=== PATIENT | female | born 1975 | race Two or more races ===

== ENCOUNTER 2020-06-04 19:26 | Emergency (ER) | payer OTHER ==
[~2020-06-04] VITALS: Ht 165.1 cm; Wt 78.9 kg
[2020-06-04 22:18] LABS: Hematocrit 31.7 % (36.0-46.0); Hemoglobin 10.1 g/dL (12.2-16.2)
[2020-06-04 22:22] LABS: Mean Corpuscular Hemoglobin 23.2 pg (28.0-32.0); Mean Corpuscular Hgb Conc. 31.7 g/dL (32.0-36.0); Mean Corpuscular Volume 73.2 fL (80.0-100.0); Platelet Count (auto) 343 10^3/uL (140-450); Red Blood Cells 4.34 10^6/uL (4.0-5.20); Red Cell Distribution Width 18.4 % (11.8-14.3); White Blood Cell 6.6 10^3/uL (4.4-10.8)
[2020-06-04 22:26] LABS: Basophils % (manual) 0 (0.0-2.0); Blast Cells 0; Metamyelocytes % 0; Myelocytes % 0; Promyelocytes % 0; Reactive Lymphocytes 0
[2020-06-04 22:36] LABS: INR 0.92 (0.9-1.15); Partial Thromboplastin Time 26.5 sec (23.0-31.2)
[2020-06-04 22:38] LABS: Alanine Aminotransferase 45 U/L (13-56); Albumin 3.1 g/dL (3.4-5.0); Anion Gap 4 (5-15); Blood Urea Nitrogen 19 mg/dL (7-18); Calcium 7.7 mg/dL (8.5-10.1); Carbon Dioxide 24 mmol/L (21-32); Chloride 105 mmol/L (98-107); Glucose 90 mg/dL (74-106); Magnesium 2.1 mg/dL (1.6-2.6); Potassium 3.7 mmol/L (3.5-5.1); Sodium 133 mmol/L (136-145)
[2020-06-04 22:47] LABS: Alkaline Phosphatase 65 U/L (45-117); Aspartate Aminotransferase 33 U/L (15-37); BUN/Creatinine Ratio 26.8; Bilirubin, Total 0.2 mg/dL (0.2-1.0); GFR African American 114 mL/min; GFR Non-African American 94 mL/min; Total Protein 8.3 g/dL (6.4-8.2)
[2020-06-04 23:17] LABS: Band Neutrophils % (manual) 9; Eosinophils % (manual) 17 (0-7); Lymphocytes % (manual) 31 (10.0-50.0); Monocytes % (manual) 5 (0-12)
[2020-06-05] LABS: Urine Bacteria FEW /hpf (None Seen); Urine Blood Negative /uL (Negative); Urine Specific Gravity 1.011 (1.001-1.035); Urine WBC 1 /hpf (0 - 5)
[2020-06-05 01:09] VITALS: BP 150/86
== END 2020-06-05 01:19 | disposition home or self-care (01) ==
LOC: ER 19:26
DX: J20.8 Acute bronchitis due to other specified organisms (principal); I10 Essential (primary) hypertension; Z20.822 Contact with and (suspected) exposure to COVID-19
CPT/HCPCS: 36415; 71045; 80053; 81001; 82728; 83735; 84484; 85007; 85027; 85610; 85730; 87426

== ENCOUNTER 2020-10-21 00:04 | Inpatient (IN) | payer OTHER ==
[~2020-10-21] VITALS: Ht 162.6 cm; Wt 78.0 kg
[2020-10-21 01:00] LABS: Basophils # (auto) 0.1 10 ^3/uL (0-0.2); Eosinophils # (auto) 2.8 10 ^3/uL (0-0.8); Neutrophils # (auto) 3.3 10 ^3/uL (1.6-8.6)
[2020-10-21 01:02] LABS: Basophils % (auto) 0.7 % (0.0-2.0); Hematocrit 29.7 % (36.0-46.0); Hemoglobin 9.6 g/dL (12.2-16.2); Lymphocytes # (auto) 3.1 10 ^3/uL (0.4-5.4); Mean Corpuscular Hemoglobin 22.9 pg (28.0-32.0); Mean Corpuscular Hgb Conc. 32.5 g/dL (32.0-36.0); Mean Corpuscular Volume 70.4 fL (80.0-100.0); Monocytes # (auto) 0.6 10 ^3/uL (0-1.3); Monocytes % (auto) 6.4 % (0.0-12.0); Neutrophils % (auto) 33.4 % (37.0-80.0); Red Blood Cells 4.22 10^6/uL (4.0-5.20); Red Cell Distribution Width 16.3 % (11.8-14.3)
[2020-10-21 01:11] LABS: Eosinophils % (auto) 28.5 % (0.0-7.0)
[2020-10-21 01:16] LABS: Albumin 3.5 g/dL (3.4-5.0); BUN/Creatinine Ratio 19.7; Calcium 8.7 mg/dL (8.5-10.1); Potassium 4.2 mmol/L (3.5-5.1)
[2020-10-21 01:19] LABS: Bilirubin, Total 0.3 mg/dL (0.2-1.0); Total Protein 8.8 g/dL (6.4-8.2)
[2020-10-21] MEDS ORDERED: AMOXICILLIN/CLAVULAN 500 MG TAB PO ONE (02:45)
[2020-10-21] MEDS ORDERED: IPRATROPIUM BROM 0.5 MG/2.5ML INH SOL NEB ONE (02:45)
[2020-10-21] MEDS ORDERED: ALBUTEROL SULF 2.5 MG/0.5ML(0.5%) NEB SOLN NEB ONE (02:45)
[2020-10-21] MEDS ORDERED: AMOXICILLIN/CLAVUL 875 MG TAB PO ONE ×2 (03:00)
[2020-10-21] MEDS ORDERED: DexAMETHasone SOD PHOS 10MG/1ML VIAL INJ IV ONE (03:30)
[2020-10-21] MEDS ORDERED: PIPERACILLIN-TAZOB 3.375GM 100 ML IV ONE (03:30)
[2020-10-21 04:00] LABS: CRP High Sensitivity 0.77 mg/dL (< 0.3)
[2020-10-21] MEDS ORDERED: TEMAZEPAM 15 MG CAP PO PRN (07:30)
[2020-10-21] MEDS ORDERED: NITROGLYCERIN 0.4 MG SL TAB SL PRN (07:30)
[2020-10-21] MEDS ORDERED: MORPHINE SULFATE INJECTION 2 MG/ML SYRG IV PRN (07:30)
[2020-10-21] MEDS ORDERED: ONDANSETRON HCL 4 MG/2 ML VIAL IV PRN (07:30)
[2020-10-21] MEDS ORDERED: ACETAMINOPHEN 325 MG TAB PO PRN (07:30)
[2020-10-21 09:36] LABS: Basophils # (auto) 0 10 ^3/uL (0-0.2); Eosinophils # (auto) 0.1 10 ^3/uL (0-0.8); Hemoglobin 9.6 g/dL (12.2-16.2); Lymphocytes # (auto) 0.7 10 ^3/uL (0.4-5.4); Monocytes # (auto) 0.1 10 ^3/uL (0-1.3)
[2020-10-21 09:38] LABS: Basophils % (auto) 0.3 % (0.0-2.0); Eosinophils % (auto) 2.2 % (0.0-7.0); Hematocrit 29.9 % (36.0-46.0); Lymphocytes % (auto) 14.1 % (10.0-50.0); Mean Corpuscular Hemoglobin 22.6 pg (28.0-32.0); Mean Corpuscular Hgb Conc. 32.1 g/dL (32.0-36.0); Mean Corpuscular Volume 70.4 fL (80.0-100.0); Monocytes % (auto) 1.3 % (0.0-12.0); Neutrophils # (auto) 4.1 10 ^3/uL (1.6-8.6); Neutrophils % (auto) 82.1 % (37.0-80.0); Red Blood Cells 4.24 10^6/uL (4.0-5.20); Red Cell Distribution Width 16.8 % (11.8-14.3)
[2020-10-21] MEDS: AMOXICILLIN/CLAVUL 875 MG TAB PO SCH ×2 (09:49→21:42)
[2020-10-21] MEDS: ZINC SULFATE 220mg CAP or TAB PO SCH (09:50)
[2020-10-21] MEDS: ENOXAPARIN SOD 40 MG/0.4 ML SYRINGE SC SCH (09:50)
[2020-10-21] MEDS: FAMOTIDINE 20 MG TAB PO SCH ×2 (09:50→21:42)
[2020-10-21] MEDS: ASCORBIC ACID 500 MG TAB PO SCH ×2 (09:50→21:42)
[2020-10-21] MEDS: MULTIPLE VITAMIN TAB PO SCH (09:50)
[2020-10-21 09:59] LABS: % Iron Saturation 3.3 % (15-50)
[2020-10-21 10:00] LABS: Albumin 3.2 g/dL (3.4-5.0); Calcium 8.8 mg/dL (8.5-10.1); Potassium 3.8 mmol/L (3.5-5.1)
[2020-10-21 10:05] LABS: BUN/Creatinine Ratio 14.9; Bilirubin, Total 0.3 mg/dL (0.2-1.0); Total Protein 8.5 g/dL (6.4-8.2)
[2020-10-21 10:40] LABS: Ferritin 3.6 ng/mL (10-322)
[2020-10-21 12:02] VITALS: BP 144/63
[2020-10-21] MEDS: SODIUM CHLOR 0.9% PF (SALINE LOCK) 10ML VIAL/SYR IV SCH ×2 (13:29→21:42)
[2020-10-21 16:55] LABS: Urine Bacteria NONE SEEN /hpf (None Seen); Urine Blood Negative /uL (Negative); Urine Specific Gravity 1.016 (1.001-1.035); Urine WBC <1 /hpf (0 - 5)
[2020-10-21 17:00] VITALS: BP 134/77
[2020-10-21 21:46] VITALS: BP 153/79
[2020-10-22 05:26] VITALS: BP 144/92
[2020-10-22] MEDS: SODIUM CHLOR 0.9% PF (SALINE LOCK) 10ML VIAL/SYR IV SCH ×3 (06:00→21:59)
[2020-10-22 07:23] LABS: Basophils # (auto) 0 10 ^3/uL (0-0.2); Basophils % (auto) 0.4 % (0.0-2.0); Eosinophils # (auto) 0.5 10 ^3/uL (0-0.8); Eosinophils % (auto) 6.2 % (0.0-7.0); Hematocrit 29.6 % (36.0-46.0); Hemoglobin 9.6 g/dL (12.2-16.2); Lymphocytes # (auto) 3.1 10 ^3/uL (0.4-5.4); Mean Corpuscular Hemoglobin 22.7 pg (28.0-32.0); Mean Corpuscular Hgb Conc. 32.3 g/dL (32.0-36.0); Mean Corpuscular Volume 70.2 fL (80.0-100.0); Monocytes # (auto) 0.5 10 ^3/uL (0-1.3); Monocytes % (auto) 6.3 % (0.0-12.0); Neutrophils # (auto) 4.3 10 ^3/uL (1.6-8.6); Neutrophils % (auto) 50.1 % (37.0-80.0); Nucleated Red Blood Cells % 0.1 %; Red Blood Cells 4.22 10^6/uL (4.0-5.20); Red Cell Distribution Width 16.4 % (11.8-14.3); White Blood Cell 8.5 10^3/uL (4.4-10.8)
[2020-10-22 07:49] LABS: Potassium 3.9 mmol/L (3.5-5.1)
[2020-10-22 07:59] LABS: Albumin 3.1 g/dL (3.4-5.0); BUN/Creatinine Ratio 21.1; Bilirubin, Total 0.3 mg/dL (0.2-1.0); Calcium 8.7 mg/dL (8.5-10.1)
[2020-10-22 09:00] VITALS: BP 152/88
[2020-10-22] MEDS: ZINC SULFATE 220mg CAP or TAB PO SCH (09:48)
[2020-10-22] MEDS: AMOXICILLIN/CLAVUL 875 MG TAB PO SCH ×2 (09:50→21:59)
[2020-10-22] MEDS: ASCORBIC ACID 500 MG TAB PO SCH ×2 (09:51→21:59)
[2020-10-22] MEDS: FAMOTIDINE 20 MG TAB PO SCH ×2 (09:51→21:59)
[2020-10-22] MEDS: MULTIPLE VITAMIN TAB PO SCH (09:51)
[2020-10-22] MEDS: ENOXAPARIN SOD 40 MG/0.4 ML SYRINGE SC SCH (09:51)
[2020-10-22 13:24] VITALS: BP 150/74
[2020-10-22] MEDS: HYDROcodone-ACET 5/325MG TAB PO PRN ×2 (14:24→22:00)
[2020-10-22] MEDS ORDERED: VANCOMYCIN PER PHARMACY 0 MG IV SCH (14:45)
[2020-10-22] MEDS ORDERED: VANCOMYCIN 1GM/250ML 250 ML IV SCH (16:00)
[2020-10-22 16:45] VITALS: BP 128/73
[2020-10-22] MEDS: VANCOMYCIN 1GM/250ML 250 ML IV SCH (21:00)
[2020-10-22 22:00] VITALS: BP 146/86
[2020-10-23 05:00] VITALS: BP 152/81
[2020-10-23] MEDS: SODIUM CHLOR 0.9% PF (SALINE LOCK) 10ML VIAL/SYR IV SCH ×2 (05:42→14:19)
[2020-10-23 06:15] LABS: White Blood Cell 7.8 10^3/uL (4.4-10.8)
[2020-10-23 06:29] LABS: Calcium 8.4 mg/dL (8.5-10.1); Hematocrit 30.1 % (36.0-46.0); Hemoglobin 9.5 g/dL (12.2-16.2); Mean Corpuscular Hemoglobin 22.5 pg (28.0-32.0); Mean Corpuscular Hgb Conc. 31.7 g/dL (32.0-36.0); Red Blood Cells 4.24 10^6/uL (4.0-5.20); Red Cell Distribution Width 16.2 % (11.8-14.3)
[2020-10-23 06:31] LABS: BUN/Creatinine Ratio 20.5
[2020-10-23 06:43] LABS: Basophils % (manual) 0 (0.0-2.0); Blast Cells 0; Metamyelocytes % 0; Myelocytes % 0; Promyelocytes % 0; Reactive Lymphocytes 0
[2020-10-23 07:27] LABS: Band Neutrophils % (manual) 2; Eosinophils % (manual) 20 (0-7); Lymphocytes % (manual) 35 (10.0-50.0); Monocytes % (manual) 8 (0-12)
[2020-10-23] MEDS: MULTIPLE VITAMIN TAB PO SCH (08:28)
[2020-10-23] MEDS: FAMOTIDINE 20 MG TAB PO SCH (08:28)
[2020-10-23] MEDS: AMOXICILLIN/CLAVUL 875 MG TAB PO SCH (08:28)
[2020-10-23] MEDS: ZINC SULFATE 220mg CAP or TAB PO SCH (08:28)
[2020-10-23] MEDS: ASCORBIC ACID 500 MG TAB PO SCH (08:28)
[2020-10-23] MEDS: ENOXAPARIN SOD 40 MG/0.4 ML SYRINGE SC SCH (08:28)
[2020-10-23 08:30] VITALS: BP 142/75
[2020-10-23] MEDS: VANCOMYCIN 1GM/250ML 250 ML IV SCH (08:30)
[2020-10-23] MEDS: HYDROcodone-ACET 5/325MG TAB PO PRN (08:40)
[2020-10-23 12:30] VITALS: BP 150/101
[2020-10-23 14:09] VITALS: BP 150/101
== END 2020-10-23 15:00 | disposition home or self-care (01) | DRG 177 ==
LOC: ER 00:04 → OVERFLOW 07:25 → WEST WING 11:50
PROVIDERS: ADMIT Nurse Practitioner Family; ATTEND Internal Medicine
DX: J15.6 Pneumonia due to other Gram-negative bacteria (principal); J96.01 Acute respiratory failure with hypoxia; J45.901 Unspecified asthma with (acute) exacerbation; Z20.822 Contact with and (suspected) exposure to COVID-19; D50.9 Iron deficiency anemia, unspecified; D63.8 Anemia in other chronic diseases classified elsewhere; I10 Essential (primary) hypertension; Z82.49 Family history of ischemic heart disease and other diseases of the circulatory system; Z79.899 Other long term (current) drug therapy
CPT/HCPCS: 36415; 36600; 71045; 80048; 80053; 81001; 82607; 82728; 82805; 83540; 83550; 84425; 84484; 85007; 85025; 85027; 86141; 87040; 87426; 93005; 94640; 96365; 96366; 96375; G0378; J1100; J2543

== ENCOUNTER 2022-02-18 10:49 | Inpatient (IN) | payer MEDICAID, OTHER ==
[~2022-02-18] VITALS: Ht 165.1 cm; Wt 98.5 kg
[2022-02-18 14:07] LABS: Hemoglobin 7.3 g/dL (12.2-16.2); Lymphocytes # (auto) 1.5 10 ^3/uL (0.4-5.4); Lymphocytes % (auto) 22.4 % (10.0-50.0); Mean Corpuscular Hemoglobin 19.6 pg (28.0-32.0); Monocytes # (auto) 0.5 10 ^3/uL (0-1.3); Nucleated Red Blood Cells % 0.1 %
[2022-02-18 14:09] LABS: Basophils # (auto) 0.1 10 ^3/uL (0-0.2); Basophils % (auto) 0.9 % (0.0-2.0); Eosinophils # (auto) 0.9 10 ^3/uL (0-0.8); Eosinophils % (auto) 12.8 % (0.0-7.0); Hematocrit 23.3 % (36.0-46.0); Mean Corpuscular Hgb Conc. 31.1 g/dL (32.0-36.0); Monocytes % (auto) 6.9 % (0.0-12.0); Neutrophils # (auto) 3.9 10 ^3/uL (1.6-8.6); Red Cell Distribution Width 17.3 % (11.8-14.3); White Blood Cell 6.8 10^3/uL (4.4-10.8)
[2022-02-18] MEDS ORDERED: LIDOCAINE VISCOUS 2% 15ML UD PO ONE (14:15)
[2022-02-18 14:16] LABS: Calcium 8.8 mg/dL (8.5-10.1); Potassium 4.3 mmol/L (3.5-5.1)
[2022-02-18 14:19] LABS: BUN/Creatinine Ratio 13.8; Bilirubin, Total 0.3 mg/dL (0.2-1.0); Total Protein 8.3 g/dL (6.4-8.2)
[2022-02-18] MEDS ORDERED: SODIUM CHLORIDE 0.9% 1,000 ML IV ONE (17:15)
[2022-02-18] MEDS ORDERED: PIPERACILLIN-TAZOB 3.375GM 100 ML IV ONE (19:30)
[2022-02-18] MEDS ORDERED: ONDANSETRON HCL 4 MG/2 ML VIAL IV PRN (21:00)
[2022-02-18] MEDS: SODIUM CHLORIDE 0.9% 1,000 ML IV SCH (22:11)
[2022-02-19] VITALS (7 sets, daily range): BP systolic 131–160; BP diastolic 62–95
[2022-02-19] MEDS: TEMAZEPAM 15 MG CAP PO PRN (01:30)
[2022-02-19 05:52] LABS: Basophils # (auto) 0 10 ^3/uL (0-0.2); Basophils % (auto) 0.5 % (0.0-2.0); Lymphocytes # (auto) 1.4 10 ^3/uL (0.4-5.4); Lymphocytes % (auto) 19.1 % (10.0-50.0)
[2022-02-19 06:00] LABS: Eosinophils % (auto) 13.2 % (0.0-7.0); Hematocrit 22.2 % (36.0-46.0); Mean Corpuscular Hemoglobin 19.2 pg (28.0-32.0); Mean Corpuscular Hgb Conc. 30.4 g/dL (32.0-36.0); Mean Corpuscular Volume 63.3 fL (80.0-100.0); Monocytes # (auto) 0.4 10 ^3/uL (0-1.3); Monocytes % (auto) 5.6 % (0.0-12.0); Neutrophils # (auto) 4.5 10 ^3/uL (1.6-8.6); Neutrophils % (auto) 61.6 % (37.0-80.0); Red Cell Distribution Width 16.9 % (11.8-14.3); White Blood Cell 7.3 10^3/uL (4.4-10.8)
[2022-02-19 06:05] LABS: Hemoglobin 6.7 g/dL (12.2-16.2)
[2022-02-19 06:06] LABS: Calcium 7.9 mg/dL (8.5-10.1); Potassium 4.5 mmol/L (3.5-5.1)
[2022-02-19] MEDS: ENOXAPARIN SOD 40 MG/0.4 ML SYRINGE SC SCH (09:10)
[2022-02-19] MEDS: PANTOPRAZOLE 40 MG TAB PO SCH (09:10)
[2022-02-19] MEDS: ACETAMINOPHEN 325 MG TAB PO PRN (09:14)
[2022-02-19] MEDS: SODIUM CHLORIDE 0.9% 1,000 ML IV SCH ×2 (10:20→17:28)
[2022-02-19] MEDS: AMPICILLIN & SULBACTAM SODIUM 3 GM in SODIUM CHL 0.9% 100 ML IV SCH ×2 (13:00→17:28)
[2022-02-19] MEDS: HYDROcodone-ACET 5/325MG TAB PO PRN (17:28)
[2022-02-20] MEDS: HYDROcodone-ACET 5/325MG TAB PO PRN ×3 (00:59→23:23)
[2022-02-20] MEDS: AMPICILLIN & SULBACTAM SODIUM 3 GM in SODIUM CHL 0.9% 100 ML IV SCH ×5 (01:00→17:44)
[2022-02-20 05:00] VITALS: BP 122/61
[2022-02-20 06:21] LABS: BUN/Creatinine Ratio 11.7; Calcium 8.9 mg/dL (8.5-10.1)
[2022-02-20 06:23] LABS: Hemoglobin 8.2 g/dL (12.2-16.2)
[2022-02-20 06:25] LABS: % Iron Saturation 4.2 % (15-50)
[2022-02-20 06:27] LABS: Hematocrit 26.5 % (36.0-46.0); Mean Corpuscular Hemoglobin 20.5 pg (28.0-32.0); Mean Corpuscular Hgb Conc. 30.7 g/dL (32.0-36.0); Mean Corpuscular Volume 66.7 fL (80.0-100.0); Red Blood Cells 3.98 10^6/uL (4.0-5.20); Red Cell Distribution Width 17.7 % (11.8-14.3); White Blood Cell 7.6 10^3/uL (4.4-10.8)
[2022-02-20 06:36] LABS: Folate (Folic Acid) 18.57 ng/mL (5.38-24)
[2022-02-20 06:51] LABS: Blast Cells 0; Metamyelocytes % 0; Myelocytes % 0; Promyelocytes % 0; Reactive Lymphocytes 0
[2022-02-20] MEDS: PANTOPRAZOLE 40 MG TAB PO SCH (08:28)
[2022-02-20] MEDS: ENOXAPARIN SOD 40 MG/0.4 ML SYRINGE SC SCH (08:28)
[2022-02-20 09:00] VITALS: BP 160/90
[2022-02-20] MEDS ORDERED: predniSONE 20 MG TAB PO ONE (10:45)
[2022-02-20 13:00] VITALS: BP 145/95
[2022-02-20] MEDS: SODIUM CHLORIDE 0.9% 1,000 ML IV SCH (13:00)
[2022-02-20 17:00] VITALS: BP 113/59
[2022-02-20] MEDS: FERROUS SULFATE 325mg EC TAB PO SCH (17:18)
[2022-02-20 22:00] VITALS: BP 147/78
[2022-02-20] MEDS: TEMAZEPAM 15 MG CAP PO PRN (23:23)
[2022-02-21] MEDS: AMPICILLIN & SULBACTAM SODIUM 3 GM in SODIUM CHL 0.9% 100 ML IV SCH ×2 (01:14→06:20)
[2022-02-21] MEDS: SODIUM CHLORIDE 0.9% 1,000 ML IV SCH ×2 (02:20→15:40)
[2022-02-21] MEDS: HYDROcodone-ACET 5/325MG TAB PO PRN ×3 (04:46→23:16)
[2022-02-21 05:00] VITALS: BP 154/89
[2022-02-21 08:14] VITALS: BP 157/68
[2022-02-21] MEDS ORDERED: predniSONE 5 MG TAB PO SCH (10:00)
[2022-02-21] MEDS: ENOXAPARIN SOD 40 MG/0.4 ML SYRINGE SC SCH (11:29)
[2022-02-21] MEDS: FERROUS SULFATE 325mg EC TAB PO SCH ×2 (11:29→19:11)
[2022-02-21] MEDS: PANTOPRAZOLE 40 MG TAB PO SCH ×2 (11:29→21:28)
[2022-02-21] MEDS: amLODIPine BESYLATE 5 MG TAB PO SCH (11:30)
[2022-02-21] MEDS: NYSTATIN (MOUTH-THROAT) 500,000 UNITS/5 ML SUSP MT SCH ×3 (12:00→21:29)
[2022-02-21 12:48] VITALS: BP 150/80
[2022-02-21 17:00] VITALS: BP 140/77
[2022-02-21 18:16] LABS: INR 0.98 (0.9-1.15)
[2022-02-21] MEDS: methylPREDNISolone SOD SUCC 40 MG/ML VL IV SCH (21:29)
[2022-02-21 22:00] VITALS: BP 145/83
[2022-02-21] MEDS: TEMAZEPAM 15 MG CAP PO PRN (23:16)
[2022-02-22 05:00] VITALS: BP 131/68
[2022-02-22] MEDS: SODIUM CHLORIDE 0.9% 1,000 ML IV SCH (05:00)
[2022-02-22 05:17] LABS: Basophils # (auto) 0 10 ^3/uL (0-0.2); Basophils % (auto) 0.2 % (0.0-2.0); Eosinophils # (auto) 0 10 ^3/uL (0-0.8); Hematocrit 26.7 % (36.0-46.0); Hemoglobin 8.2 g/dL (12.2-16.2); Lymphocytes # (auto) 1.1 10 ^3/uL (0.4-5.4); Monocytes # (auto) 0.2 10 ^3/uL (0-1.3); Red Cell Distribution Width 18.2 % (11.8-14.3)
[2022-02-22 05:19] LABS: Eosinophils % (auto) 0.1 % (0.0-7.0); Lymphocytes % (auto) 20.3 % (10.0-50.0); Mean Corpuscular Hemoglobin 20.5 pg (28.0-32.0); Mean Corpuscular Hgb Conc. 30.5 g/dL (32.0-36.0); Mean Corpuscular Volume 67.2 fL (80.0-100.0); Monocytes % (auto) 3.1 % (0.0-12.0); Neutrophils # (auto) 4.2 10 ^3/uL (1.6-8.6); Neutrophils % (auto) 76.3 % (37.0-80.0); Nucleated Red Blood Cells % 0.2 %; Red Blood Cells 3.98 10^6/uL (4.0-5.20); White Blood Cell 5.5 10^3/uL (4.4-10.8)
[2022-02-22 05:33] LABS: BUN/Creatinine Ratio 17.5; Calcium 8.8 mg/dL (8.5-10.1); Potassium 4.8 mmol/L (3.5-5.1)
[2022-02-22] MEDS: NYSTATIN (MOUTH-THROAT) 500,000 UNITS/5 ML SUSP MT SCH ×4 (06:34→21:03)
[2022-02-22] MEDS: HYDROcodone-ACET 5/325MG TAB PO PRN (06:40)
[2022-02-22 07:30] VITALS: BP 157/68
[2022-02-22] MEDS: FERROUS SULFATE 325mg EC TAB PO SCH ×2 (08:00→18:16)
[2022-02-22] MEDS: methylPREDNISolone SOD SUCC 40 MG/ML VL IV SCH ×2 (08:49→21:03)
[2022-02-22] MEDS: ENOXAPARIN SOD 40 MG/0.4 ML SYRINGE SC SCH (08:49)
[2022-02-22] MEDS: PANTOPRAZOLE 40 MG TAB PO SCH ×2 (08:49→21:03)
[2022-02-22] MEDS: amLODIPine BESYLATE 5 MG TAB PO SCH (08:56)
[2022-02-22 09:00] VITALS: BP 141/72
[2022-02-22] MEDS ORDERED: LIDOCAINE VISCOUS 2% 15ML UD ONE (09:12)
[2022-02-22] MEDS ORDERED: diphenhdrAMINE HCL 50 MG/1 ML VL ONE (09:13)
[2022-02-22] MEDS: fentaNYL CITRATE 100 MCG/2 ML VL ONE ×2 (09:37→09:40)
[2022-02-22] MEDS: MIDAZOLAM HCL 5 MG/ML-1ML VIAL ONE ×2 (09:37→09:40)
[2022-02-22 13:00] VITALS: BP 147/75
[2022-02-22] MEDS ORDERED: PRED10TA PO (13:51)
[2022-02-22 16:38] VITALS: BP 121/68
[2022-02-22] MEDS: ACETAMINOPHEN 325 MG TAB PO PRN (21:03)
[2022-02-22 22:06] VITALS: BP_SYST 161; BP_SYST 168; BP_DIAS 83; BP_DIAS 89
[2022-02-23 04:37] VITALS: BP 148/77
[2022-02-23] MEDS: HYDROcodone-ACET 5/325MG TAB PO PRN ×2 (04:43→21:37)
[2022-02-23] MEDS: NYSTATIN (MOUTH-THROAT) 500,000 UNITS/5 ML SUSP MT SCH ×4 (06:05→21:36)
[2022-02-23 07:30] VITALS: BP 131/68
[2022-02-23 09:00] VITALS: BP 160/93
[2022-02-23] MEDS: FERROUS SULFATE 325mg EC TAB PO SCH ×2 (09:19→18:20)
[2022-02-23] MEDS: methylPREDNISolone SOD SUCC 40 MG/ML VL IV SCH ×2 (09:21→21:36)
[2022-02-23] MEDS: PANTOPRAZOLE 40 MG TAB PO SCH ×2 (09:21→21:36)
[2022-02-23] MEDS: ENOXAPARIN SOD 40 MG/0.4 ML SYRINGE SC SCH (09:21)
[2022-02-23] MEDS: amLODIPine BESYLATE 5 MG TAB PO SCH (09:21)
[2022-02-23] MEDS ORDERED: cloNIDine HCL 0.1 MG TAB PO PRN (12:15)
[2022-02-23 13:00] VITALS: BP_SYST 145; BP_SYST 177; BP_DIAS 69; BP_DIAS 91
[2022-02-23 16:00] VITALS: BP 125/51
[2022-02-23 22:00] VITALS: BP 133/76
[2022-02-24 05:00] VITALS: BP 132/74
[2022-02-24] MEDS: NYSTATIN (MOUTH-THROAT) 500,000 UNITS/5 ML SUSP MT SCH (05:29)
[2022-02-24] MEDS: HYDROcodone-ACET 5/325MG TAB PO PRN (05:35)
[2022-02-24] MEDS: FERROUS SULFATE 325mg EC TAB PO SCH (08:03)
[2022-02-24 09:00] VITALS: BP 143/80
[2022-02-24] MEDS: amLODIPine BESYLATE 5 MG TAB PO SCH (09:57)
[2022-02-24] MEDS: methylPREDNISolone SOD SUCC 40 MG/ML VL IV SCH (09:57)
[2022-02-24] MEDS: PANTOPRAZOLE 40 MG TAB PO SCH (09:58)
[2022-02-24] MEDS: ENOXAPARIN SOD 40 MG/0.4 ML SYRINGE SC SCH (09:58)
[2022-02-24] MEDS ORDERED: PANT40T PO (12:37)
[2022-02-24] MEDS ORDERED: FERR-7 PO (12:38)
[2022-02-24] MEDS ORDERED: AMLO-496 PO (12:40)
[2022-02-24 12:49] VITALS: BP 145/92
[2022-02-24 13:54] VITALS: BP 145/92
== END 2022-02-24 14:38 | disposition home or self-care (01) | DRG 663 ==
LOC: ER 10:49 → OVERFLOW 20:47 → WEST WING 02-19 15:22
PROVIDERS: ADMIT Nurse Practitioner; ATTEND Nurse Practitioner Acute Care
PROC: 30233N1 Transfusion of Nonautologous Red Blood Cells into Peripheral Vein, Percutaneous Approach (ICD-10-PCS; 2022-02-19)
PROC: 0DB78ZX Excision of Stomach, Pylorus, Via Natural or Artificial Opening Endoscopic, Diagnostic (ICD-10-PCS; principal; 2022-02-22 09:34)
DX: D50.9 Iron deficiency anemia, unspecified (principal); D61.818 Other pancytopenia; D75.839 Thrombocytosis, unspecified; J02.9 Acute pharyngitis, unspecified; Z20.822 Contact with and (suspected) exposure to COVID-19; M06.9 Rheumatoid arthritis, unspecified; I10 Essential (primary) hypertension; K21.9 Gastro-esophageal reflux disease without esophagitis; K29.70 Gastritis, unspecified, without bleeding; R13.10 Dysphagia, unspecified; Z79.899 Other long term (current) drug therapy
CPT/HCPCS: 36415; 36430; 70490; 71046; 76856; 80048; 80053; 81025; 82607; 82746; 83540; 83550; 83605; 85007; 85025; 85027; 85045; 85610; 85652; 86141; 86431; 86850; 86900; 86901; 86920; 87040; 87070; 87426; 87880; 96365; 96366; 96372; 96375; G0378; J2250; J2543